=== PATIENT | female | born 1960 | race Caucasian/White ===

== ENCOUNTER 2020-06-17 12:21 | Emergency (ER) | payer SELFPAY ==
[2020-06-17] MEDS ORDERED: Meclizine HCl 25 MG TAB ONE (13:41)
== END 2020-06-17 14:20 | disposition home or self-care (01) ==
LOC: BURERS 12:21
DX: H81.12 Benign paroxysmal vertigo, left ear (principal); I10 Essential (primary) hypertension
CPT/HCPCS: 99283